=== PATIENT | female | born 1985 | race Caucasian/White ===

== ENCOUNTER 2022-02-21 17:06 | Outpatient (CLI) | payer OTHER, SELFPAY ==
[2022-02-21 10:05] LABS: Cholesterol* 217 mg/dL (90-199)
[2022-02-21 10:06] LABS: Glucose* 91 mg/dL (60-115); HDL Cholesterol* 53 mg/dL (>=50); LDL Cholesterol Calculated 107 mg/dL (<100); Triglycerides* 285 mg/dL (40-149)
== END 2022-02-21 17:07 | disposition home or self-care (01) ==
PROVIDERS: Visit Provider Registered Nurse
DX: E78.5 Hyperlipidemia, unspecified (principal); Z13.1 Encounter for screening for diabetes mellitus
CPT/HCPCS: 80061; 82947